=== PATIENT | female | born 1960 | race Caucasian/White ===

== ENCOUNTER 2020-07-19 06:54 | Emergency (ER) | payer OTHER ==
[~2020-07-19 06:54] MED LIST: AMLODIPINE BESYL5 MG PO; BACLOFEN 10MG T10 MG PO; ESCITALOPRAM OX10 MG PO; ESTRADIOL1 MG PO; LEVSIN-SL0.125 M1 PO; NAPROXEN500 MG PO; PANTOPRAZOLE SO40 MG PO; VITAMIN D2000 UNIT PO
[2020-07-19 07:54] LABS: BASOPHIL 0.5 % (0-2); EOSINOPHIL 3.1 % (0-5); HCT 41.5 % (37.0-47.0); HGB 13.6 g/dl (12.5-16.0); LYMPHOCYTE 47.4 % (15-48); MCH 29.2 pg (25.0-31.0); MCHC 32.8 g/dL (32.0-36.0); MCV 89.1 fL (78.0-100.0); MONOCYTE 7.6 % (0-12); MPV 10.5 fL (6.0-9.5); NEUTROPHIL 41.1 % (41-80); NRBC 0; PLT 247 K/uL (150-400); RBC 4.66 M/uL (4.20-5.40); RDW 13.5 % (11.5-14.0); WBC 6.1 K/uL (4.0-10.5)
[2020-07-19 08:11] LABS: BUN/CREAT RATIO (CALC) 16.7 RATIO; CREATININE 0.6 mg/dL (0.51-0.95); POTASSIUM 3.8 mmol/L (3.5-5.1)
[2020-07-19] MEDS ORDERED: NAPROXEN500 MG PO (08:49)
== END 2020-07-19 09:02 | disposition home or self-care (01) ==
LOC: FER 06:54
PROVIDERS: Emergency Medicine
DX: M94.0 Chondrocostal junction syndrome [Tietze] (principal); R06.02 Shortness of breath; R51.9 Headache, unspecified; R05 Cough; I10 Essential (primary) hypertension; Z86.16 Personal history of COVID-19
CPT/HCPCS: 36415; 71046; 80048; 84484; 85025; 85379; 93005

== ENCOUNTER 2021-10-24 11:11 | Inpatient (IN) | payer OTHER ==
[~2021-10-24] VITALS: Ht 162.6 cm; Wt 100.3 kg
[2021-10-24 12:36] LABS: BASOPHIL 0.5 % (0-2); EOSINOPHIL 3.6 % (0-5); HCT 40.8 % (37.0-47.0); HGB 13.3 g/dl (12.5-16.0); LYMPHOCYTE 46.3 % (15-48); MCH 28.9 pg (25.0-31.0); MCHC 32.6 g/dL (32.0-36.0); MCV 88.5 fL (78.0-100.0); MONOCYTE 8.6 % (0-12); MPV 10.6 fL (6.0-9.5); NEUTROPHIL 40.8 % (41-80); NRBC 0; PLT 246 K/uL (150-400); RBC 4.61 M/uL (4.20-5.40); RDW 13.2 % (11.5-14.0); WBC 6.3 K/uL (4.0-10.5)
[2021-10-24 12:52] LABS: ALBUMIN 3.8 g/dL (3.4-5.0); BILIRUBIN - TOTAL 0.2 mg/dL (0.2-1.0); CREATININE 0.56 mg/dL (0.51-0.95); GLOBULIN (CALCULATION) 4.3 g/dL; POTASSIUM 3.9 mmol/L (3.5-5.1); TOTAL PROTEIN 8.1 g/dL (6.4-8.2)
[2021-10-24 12:55] LABS: LACTIC ACID 1.7 mmol/L (0.4-1.9)
[2021-10-24 14:49] LABS: BILIRUBIN NEGATIVE (NEGATIVE); BLOOD NEGATIVE Ery/uL (NEGATIVE); CLARITY CLEAR (CLEAR); COLOR YELLOW (YELLOW); GLUCOSE (U) NORMAL (NORMAL); LEUKOCYTES NEGATIVE Leu/uL (NEGATIVE); NITRITE NEGATIVE (NEGATIVE); PROTEIN NEGATIVE (NEGATIVE); UROBILINOGEN 0.2 mg/dL (0.2-1.0)
[2021-10-24] MEDS ORDERED: MOBIC7.5 MG PO (17:36)
[2021-10-24] MEDS ORDERED: HCTZ25 MG PO (17:37)
[2021-10-24] MEDS ORDERED: PROZAC20 MG PO (17:37)
[2021-10-24] MEDS ORDERED: MEGANATURAL-BP150 MG PO (17:38)
[2021-10-24] MEDS ORDERED: FOLIC ACID1 MG PO (17:38)
[2021-10-24] MEDS ORDERED: CANDICIDAL CAP1 EACH PO (17:39)
--- NOTE | 2021-10-24 18:48 | NUR ---
PREFORMING ORAL CARE AT 1655 PT WAS AGONAL BREATHING, SUSAN ALFONSO COMPLETED ORAL CARE. RECONGNIZED CHANGE IN COLOR, PT DID NOT HAVE CHEST RISE, AND THERE WAS NO PULSE. MD WELLS WAS CALLED, AFTER NO ANSWER DR GROVES WAS CALLED AND CALLED TIME OF 1705. CHEST LIST STARTED
[2021-10-25 03:35] LABS: BASOPHIL 0.7 % (0-2); EOSINOPHIL 3.5 % (0-5); HCT 36.7 % (37.0-47.0); HGB 11.9 g/dl (12.5-16.0); LYMPHOCYTE 50.3 % (15-48); MCH 28.8 pg (25.0-31.0); MCHC 32.4 g/dL (32.0-36.0); MCV 88.9 fL (78.0-100.0); MONOCYTE 10.1 % (0-12); MPV 10.2 fL (6.0-9.5); NEUTROPHIL 34.9 % (41-80); NRBC 0; PLT 204 K/uL (150-400); RBC 4.13 M/uL (4.20-5.40); RDW 13.3 % (11.5-14.0)
[2021-10-25 03:51] LABS: CREATININE 0.62 mg/dL (0.51-0.95); MAGNESIUM 2.1 mg/dL (1.8-2.4); POTASSIUM 3.9 mmol/L (3.5-5.1)
--- NOTE | 2021-10-25 06:16 | NUR ---
MRI FORM COMPLETED BY PATIENT AND REVIEWED BY RN. PATIENT GIVEN PO VALIUM IN EMAR PRIOR TO GOING FOR MRI TEST. Collin VALLES ENGINEERING TECHNOLOGY INSTRUCTOR STATES THAT PATIENT IS ABLE TO GO TO MRI WITHOUT RN, IV FLUIDS STOPPED, AND IN A WHEEL CHAIR.
--- NOTE | 2021-10-25 06:42 | NUR ---
@ 3343 PATIENT TRANSPORTED TO MRI [facility]
--- NOTE | 2021-10-25 10:56 | NUR ---
10/25/21 Patient lives at home with spouse. She was independent in the home and community prior to admission. Per pt, Therapy is recommending acute kelsie.
--- NOTE | 2021-10-26 14:18 | NUR ---
10/26/21 [facility] has accepted patient pending insurance authorization.
--- NOTE | 2021-10-27 13:26 | NUR ---
10/27/21 Ms. Gilbert has decided on [facility] to [facility]. An appointment was scheduled at [facility] for 10/28 at 4:00. Report given to KANIKA Siu RN.
[2021-10-27] MEDS ORDERED: PLAVIX75 MG PO (13:43)
[2021-10-27] MEDS ORDERED: LIPITOR20 MG PO (13:43)
[2021-10-27] MEDS ORDERED: ASPIRIN EC81 MG PO (13:43)
[2021-10-27] MEDS ORDERED: NORVASC5 MG PO (13:43)
== END 2021-10-27 15:12 | disposition home or self-care (01) | DRG 65 ==
LOC: FER 11:11 → FICU 15:04 → FTCU 10-25 11:49
PROVIDERS: Emergency Medicine; ADMIT Internal Medicine
PROC: B24BZZ4 Ultrasonography of Heart with Aorta, Transesophageal (ICD-10-PCS; principal; 2021-10-24)
DX: I63.9 Cerebral infarction, unspecified (principal); G81.92 Hemiplegia, unspecified affecting left dominant side; I08.1 Rheumatic disorders of both mitral and tricuspid valves; I11.9 Hypertensive heart disease without heart failure; Z20.822 Contact with and (suspected) exposure to COVID-19; F32.A Depression, unspecified; K21.9 Gastro-esophageal reflux disease without esophagitis; I27.20 Pulmonary hypertension, unspecified; R94.31 Abnormal electrocardiogram [ECG] [EKG]; R55 Syncope and collapse; R07.89 Other chest pain; R77.8 Other specified abnormalities of plasma proteins; E66.9 Obesity, unspecified; Z90.49 Acquired absence of other specified parts of digestive tract; Z98.51 Tubal ligation status; Z90.710 Acquired absence of both cervix and uterus; Z82.49 Family history of ischemic heart disease and other diseases of the circulatory system; Z79.899 Other long term (current) drug therapy; Z68.37 Body mass index [BMI] 37.0-37.9, adult
CPT/HCPCS: 36415; 70450; 70553; 71045; 80048; 80053; 81003; 83605; 83735; 84484; 85025; 85379; 97110; 97116; 97162; 97166; 97530; 97530-GP; 97535; A9579; G0378; J2270; J2405; J3490; J7030; Q9967; U0002